=== PATIENT | female | born 1980 | race Caucasian/White ===

== ENCOUNTER → 2021-05-01 | Outpatient (CLI) | payer OTHER ==
--- NOTE | 2021-05-01 16:18 | Diagnostic Imaging Report ---
PROCEDURE: US Non-ob pelvis comp/trans. TECHNIQUE: Multiple realtime grayscale images were obtained of the pelvis in various projections endovaginally. Transabdominal imaging was also performed. INDICATION: Abnormal uterine and vaginal bleeding. COMPARISON: None. FINDINGS: The uterus is normal in size. No focal uterine masses are seen. The endometrium is upper normal in thickness for a premenopausal female at 1.4 cm. Multiple nabothian cysts are present, the largest measuring up to 1.4 cm. The right ovary measures 3.3 x 1.7 x 2.8 cm. The left ovary measures 3.3 x 1.7 x 2.7 cm. Multiple follicles are noted. No masses are seen. Vascularity is normal bilaterally. No free fluid is seen. IMPRESSION: 1. The endometrium is upper normal in thickness, but no uterine masses are seen. 2. Multiple nabothian cysts. 3. Normal-appearing ovaries. Dictated by: Dictated on workstation # [id number]
== END ==
LOC: RAD 14:00
PROVIDERS: ATTEND Obstetrics & Gynecology
DX: N88.8 Other specified noninflammatory disorders of cervix uteri (principal); R93.89 Abnormal findings on diagnostic imaging of other specified body structures
CPT/HCPCS: 76830; 76856

== ENCOUNTER 2021-06-16 05:35 | Outpatient (CLI) | payer OTHER ==
[~2021-06-16] VITALS: Ht 180.3 cm; Wt 118.6 kg
[2021-06-16] MEDS ORDERED: ESCI10TA PO (11:47)
[2021-06-16] MEDS ORDERED: FERR325T18 PO (11:47)
[2021-06-16] MEDS ORDERED: LISI10TA25 PO (11:47)
[2021-06-16] MEDS ORDERED: FAMO20TA3 PO (11:47)
== END 2021-06-16 11:51 | disposition home or self-care (01) ==
LOC: PREOP 05:35
PROVIDERS: ATTEND Obstetrics & Gynecology
DX: Z01.818 Encounter for other preprocedural examination (principal)

== ENCOUNTER 2021-06-22 08:52 | Day surgery (SDC) | payer OTHER ==
[2021-06-22] VITALS (10 sets, daily range): BP systolic 105–145; BP diastolic 67–92
[~2021-06-22] VITALS: Ht 180.3 cm; Wt 118.6 kg
[~2021-06-22 08:52] MED LIST: ESCI10TA PO; FAMO20TA3 PO; FERR325T18 PO; LISI10TA25 PO
[2021-06-22] MEDS ORDERED: LACTATED RINGERS 1,000 ML IV PRN (09:00)
[2021-06-22] MEDS ORDERED: BUPIVACAINE 0.25% 30 ML (SENSORCAINE) VIAL ONE (09:11)
[2021-06-22 09:53] LABS: BASOPHILS # (AUTO) 0.1 10^3/uL (0.0-0.1); BASOPHILS % (AUTO) 1 % (0-10); EOSINOPHILS # (AUTO) 0.2 10^3/uL (0.0-0.3); EOSINOPHILS % (AUTO) 3 % (0-10); HEMATOCRIT 38 % (35-52); HEMOGLOBIN 12.5 g/dL (11.5-16.0); LYMPHOCYTES # (AUTO) 1.5 10^3/uL (1.0-4.0); LYMPHOCYTES % (AUTO) 21 % (12-44); MEAN CORPUSCULAR HEMOGLOBIN 26 pg (25-34); MEAN CORPUSCULAR HGB CONC 33 g/dL (32-36); MEAN CORPUSCULAR VOLUME 79 fL (80-99); MEAN PLATELET VOLUME 11.4 fL (9.0-12.2); MONOCYTES # (AUTO) 0.6 10^3/uL (0.0-1.0); MONOCYTES % (AUTO) 8 % (0-12); NEUTROPHILS # (AUTO) 4.9 10^3/uL (1.8-7.8); NEUTROPHILS % (AUTO) 67 % (42-75); PLATELET COUNT 333 10^3/uL (130-400); WHITE BLOOD COUNT 7.2 10^3/uL (4.3-11.0)
[2021-06-22] MEDS ORDERED: proPOfol 200 MG/20 ML (DIPRIVAN) VIAL IV ONE (10:13)
[2021-06-22] MEDS ORDERED: SEVOFLURANE (ULTANE) 15 ML INHAL SOLN ONE ×2 (10:13→10:45)
[2021-06-22] MEDS ORDERED: LIDOCAINE PF 2% 5 ML (XYLOCAINE) VIAL ONE (10:13)
[2021-06-22] MEDS ORDERED: ONDANSETRON 4 MG/2 ML (SDV) Z0FRAN ONE (10:13)
[2021-06-22] MEDS ORDERED: fentaNYL INJ 100 MCG/2 ML AMP ONE (10:13)
[2021-06-22] MEDS ORDERED: MIDAZOLAM 2 MG/2 ML (VERSED) VIAL ONE (10:14)
[2021-06-22] MEDS ORDERED: D5 LR IV SOLUTION 1,000 ML IV SCH (10:30)
[2021-06-22] MEDS ORDERED: KETOROLAC 30 MG/ML VIAL IVP ONE (10:30)
[2021-06-22] MEDS ORDERED: ONDANSETRON 4 MG/2 ML (SDV) Z0FRAN IVP PRN ×2 (10:30→11:00)
--- NOTE | 2021-06-22 10:33 | Discharge Inst-Women's Service ---
Discharge Inst-Women's Serv Depart Medication/Instructions New, Converted or Re-Newed RX: RX on Chart Problems Reviewed?: Yes Consults/Follow Up Additional Follow Up: Yes Activity Activity: Activity as Tolerated Driving Instructions: No Driving for 1 Week NO SMOKING: NO SMOKING Nothing Inside Vagina: No Douching, No [place], No Tampons Diet Discharge Diet: No Restrictions Symptoms to Report to : Bleeding Excessive, Pain Increased, Fever Over 101 Degrees F, Vaginal Bleeding Increase, Questions/Concerns For Any Problems or Questions: Contact Your Physician ARIS EUGENE DO Jun 22, 2021 10:33
--- NOTE | 2021-06-22 10:36 | Progress Note-Pre Operative ---
Pre-Operative Progress Note H&P Reviewed The H&P was reviewed, patient examined and no changes noted. Date Seen by Provider: Jun 22, 2021 Time Seen by Provider: 10:00 Date H&P Reviewed: Jun 22, 2021 Time H&P Reviewed: 10:00 Pre-Operative Diagnosis: ARIS CROOK DO Jun 22, 2021 10:36
[2021-06-22] MEDS ORDERED: fentaNYL INJ 100 MCG/2 ML AMP IVP ONE (11:00)
[2021-06-22] MEDS ORDERED: MEPERIDINE (DEMEROL) INJ 50 MG/ML IVP ONE (11:00)
[2021-06-22] MEDS ORDERED: morphine INJ 10 MG/ML 1ML (SYR OR VIAL) IVP ONE (11:00)
--- NOTE | 2021-06-22 12:29 | Anesthesia-General Post-Op ---
General Patient Condition Mental Status/LOC: Same as Preop Cardiovascular: Satisfactory Nausea/Vomiting: Absent Respiratory: Satisfactory Pain: Controlled Complications: Absent Post Op Complications Complications None Follow Up Care/Instructions Patient Instructions None needed. Anesthesia/Patient Condition Patient Condition Patient is doing well, no complaints, stable vital signs, no apparent adverse anesthesia problems. No complications reported per nursing. PETER BOLIVAR CRNA Jun 22, 2021 12:29
--- NOTE | 2021-06-22 20:57 | OPERATIVE REPORT ---
DATE OF SERVICE: PREOPERATIVE DIAGNOSES: 1. A 41-year-old female with abnormal uterine bleeding. 2. BMI greater than 35. POSTOPERATIVE DIAGNOSES: 1. A 41-year-old female with abnormal uterine bleeding. 2. BMI greater than 35. PROCEDURE: D and C. SURGEON: Nickolas Silva DO ANESTHESIA: LMA general. ESTIMATED BLOOD LOSS: Minimal. URINE OUTPUT: 100 mL drained at the start of the procedure. FLUIDS: 600 mL lactated Ringer's solution. FINDINGS: A grossly normal appearing external female genitalia: Normal appearing cervix. Moderate amount of endometrial curettings. SPECIMEN SENT: Endometrial curettings. INDICATIONS FOR PROCEDURE: This 41-year-old female patient, who is consulted to my office for abnormal heavy uterine bleeding surrounding the times of her period as well as some irregular intermittent bleeding. I discussed with the patient performing endometrial sampling due to the age of greater than 40 and her BMI over 35 due to the risk of hyperplasia or endometrial cancer. The patient was agreeable to proceed with endometrial sampling. We discussed D and C and how it could be both diagnostic and curative potentially. She was agreeable to proceed with this due to those factors. Risks of the procedure were discussed with the patient in detail. After all her questions were answered, consent was obtained, the patient was taken to the operating room. OPERATIVE REPORT IN DETAIL: Once in the operating room, anesthesia was found to be adequate. She was placed in dorsal lithotomy position, prepped and draped in normal sterile fashion where a timeout was performed and a straight catheterization was performed. A weighted speculum inserted to the patient's vagina. Right angle retractor was used to visualize the cervix, which was grasped at 12 o'clock position using a long Allis clamp. I then performed a paracervical block at 3 and 9 o'clock positions on the cervix. Care was taken to aspirate for injecting 5 mL of 0.25% Marcaine injected into each site. After which I gently dilated the cervix using Hegar dilators to maximum dilatation approximately 1.2 cm, I then sound the uterine cavity, depth was found to be 8 cm. I then performed a gentle curettage of the entire endometrial cavity collecting as much endometrial tissue as it is produced from the cervix. This is all sent together as one specimen endometrial curettings, after which there was no active bleeding noted from any of my dissection planes. All instruments were removed from the patient's vagina. The patient tolerated the procedure well and sent to recovery area in stable condition. Lap and sponge counts were correct at the end of the procedure. Instrument count was correct as well. Job ID: [id number] DocumentID: [id number] Dictated Date: 06/22/2021 13:07:16 Copying Machine Repairer Date: 06/22/2021 20:57:13 Dictated By: DO ERICA THOMAS
== END 2021-06-22 12:45 | disposition home or self-care (01) ==
LOC: SDC 08:52
PROVIDERS: ATTEND Obstetrics & Gynecology
DX: N93.9 Abnormal uterine and vaginal bleeding, unspecified (principal); N94.5 Secondary dysmenorrhea; R93.89 Abnormal findings on diagnostic imaging of other specified body structures; I10 Essential (primary) hypertension; K21.9 Gastro-esophageal reflux disease without esophagitis; Z68.35 Body mass index [BMI] 35.0-35.9, adult; Z90.89 Acquired absence of other organs; Z90.49 Acquired absence of other specified parts of digestive tract; Z79.899 Other long term (current) drug therapy; Z83.3 Family history of diabetes mellitus; Z80.49 Family history of malignant neoplasm of other genital organs
CPT/HCPCS: 36415; 84703; 85025; 86850; 86900; 86901; 87081; 88305

== ENCOUNTER 2021-10-08 09:37 | Outpatient (CLI) | payer OTHER ==
[~2021-10-08] VITALS: Ht 177.8 cm; Wt 122.5 kg
[2021-10-08 09:45] VITALS: BP 139/93
[2021-10-08 09:56] VITALS: BP 156/96
[2021-10-08] MEDS ORDERED: BAMLANIVIMAB 700 MG/ETESEVIMAB 1,400 MG IN NS IV ONE ×3 (10:00)
[2021-10-08] MEDS ORDERED: EPINEPHrine INJECTION 1 MG/ML AMP IM PRN (10:00)
[2021-10-08] MEDS ORDERED: ACETAMINOPHEN 500 MG TAB (TYLENOL) PO PRN (10:00)
[2021-10-08] MEDS ORDERED: diphenhydrAMINE 50 MG/ML INJ (BENADRYL) IV PRN (10:00)
[2021-10-08] MEDS ORDERED: ONDANSETRON 4 MG/2 ML (SDV) Z0FRAN IV PRN (10:00)
[2021-10-08 10:04] VITALS: BP 161/100
[2021-10-08 10:20] VITALS: BP 151/93
[2021-10-08 10:28] VITALS: BP 136/94
[2021-10-08 10:56] VITALS: BP 133/91
== END 2021-10-08 11:10 ==
LOC: INFUSION 09:37
PROVIDERS: ATTEND Nurse Practitioner Family
DX: U07.1 COVID-19 (principal)